=== PATIENT | female | born 1985 | race African-American/Black ===

== ENCOUNTER 2018-12-27 14:04 | Day surgery (SDC) | payer OTHER ==
[~2018-12-27] VITALS: Ht 160 cm; Wt 63.6 kg
[~2018-12-27 14:04] MED LIST: BIOTIN PO; BIRTH CONTROL PO; CEFAZOLIN 1,000 MG ONE; DEXAMETHASONE 4 MG/ML, 1ML ONE; GLYCOPYRROLATE 0.2MG/1ML, 5ML ONE; KETOROLAC 30 MG/1 ML ONE; LACT1CAP35 PO; NEOSTIGMINE 1 MG/ML, 10ML ONE; ONDANSETRON 2MG/ML, 2ML ONE; PROPOFOL 10 MG/ML, 20ML ONE; ROCURONIUM 10MG/ML,5ML ONE; SUCCINYLCHOLINE 20 MG/ML, 10ML ONE
[2018-12-27] MEDS ORDERED: LACTATED RINGERS 1,000 ML IV SCH (14:13)
[2018-12-27] MEDS ORDERED: GABAPENTIN 300 MG CAPSULE PO ONE (14:30)
[2018-12-27] MEDS ORDERED: SCOPOLAMINE PATCH, 1.5MG PATCH.TD72 TD ONE (14:30)
[2018-12-27] MEDS ORDERED: ACETAMINOPHEN 500 MG TABLET PO ONE (14:30)
[2018-12-27 14:34] VITALS: BP 128/83
[2018-12-27] MEDS ORDERED: BUPIVACAINE/PF 0.25% ONE (15:25)
[2018-12-27] MEDS ORDERED: NEOSPORIN OINT, 15GM ONE (15:25)
[2018-12-27] MEDS ORDERED: EPINEPHRINE 1 MG/ML, 1ML ONE (15:26)
[2018-12-27] MEDS ORDERED: FENTANYL PF 250 MCG/5ML ONE (15:43)
[2018-12-27] MEDS ORDERED: MIDAZOLAM 1 MG/ML, 2ML ONE (15:43)
[2018-12-27] MEDS ORDERED: METOCLOPRAMIDE 5 MG/ML, 2ML IV PRN (17:00)
[2018-12-27] MEDS ORDERED: ONDANSETRON 2MG/ML, 2ML IVPush PRN (17:00)
[2018-12-27] MEDS ORDERED: LABETALOL 5MG/ML, 20ML IV PRN (17:00)
[2018-12-27] MEDS ORDERED: HYDROmorphone 1 MG/ML, 1ML INJ IV PRN (17:00)
[2018-12-27] MEDS ORDERED: PROMETHAZINE 25 MG/ML, 1ML IV PRN (17:00)
[2018-12-27] MEDS ORDERED: KETOROLAC 30 MG/1 ML IV PRN (17:00)
[2018-12-27] MEDS ORDERED: ALBUTEROL SULFATE 2.5 MG/3 ML NPPB PRN (17:00)
[2018-12-27] MEDS ORDERED: MEPERIDINE/PF 25MG/0.5ML IVPush PRN (17:00)
[2018-12-27] MEDS ORDERED: OXYcodone 5 MG/5 ML ORAL.SOL UDC PO PRN (17:00)
[2018-12-27] MEDS ORDERED: hydrALAzine 20 MG/ML, 1ML IV PRN (17:00)
[2018-12-27] MEDS ORDERED: OXYcodone 5 MG/5 ML ORAL.SOL UDC ONE (17:37)
[2018-12-27] MEDS ORDERED: FENTANYL PF 100 MCG/2ML ONE (17:37)
[2018-12-27] MEDS: FENTANYL PF 100 MCG/2ML IV PRN ×2 (17:41→17:46)
== END 2018-12-27 21:45 | disposition home or self-care (01) ==
LOC: OR 14:04 → 4NE 18:30 → OR 21:45
PROVIDERS: ATTEND Obstetrics & Gynecology Maternal & Fetal Medicine
DX: R10.2 Pelvic and perineal pain (principal); N94.6 Dysmenorrhea, unspecified; Z79.899 Other long term (current) drug therapy; Z88.1 Allergy status to other antibiotic agents; Z83.3 Family history of diabetes mellitus; Z80.8 Family history of malignant neoplasm of other organs or systems; Z83.42 Family history of familial hypercholesterolemia
CPT/HCPCS: 49320; 81025; J0171; J0330; J0690; J1100; J1885; J2250; J2405; J2704; J2710; J3010; J3490; J7120; G0378